=== PATIENT | male | born 1995 | race Caucasian/White ===

== ENCOUNTER 2021-07-04 06:34 | Emergency (ER) | payer OTHER ==
--- NOTE | 2021-07-04 07:31 | ED Physician Documentation ---
PD HPI LOWER EXT INJURY - Stated complaint Stated Complaint: PX RT ANKLE - Chief complaint Chief Complaint: Trauma Ext - History obtained from History obtained from: Patient - Additional information Additional information: The patient comes emergency department with chief complaint of ankle swelling and pain after twisting injury last night. Patient states he was playing basketball, when he twisted his ankle. He denies any other injuries. He has some degree of pain but can bear weight. He has noticed quite a bit of swelling and bruising. He states he is here because his made him come in. No other complaints at this time. Review of Systems Ten Systems: 10 systems reviewed and negative Constitutional: reports: Reviewed and negative Eyes: reports: Reviewed and negative Ears: reports: Reviewed and negative Nose: reports: Reviewed and negative Throat: reports: Reviewed and negative Cardiac: reports: Reviewed and negative Respiratory: reports: Reviewed and negative GI: reports: Reviewed and negative : reports: Reviewed and negative Skin: reports: Reviewed and negative Musculoskeletal: reports: Extremity pain, Joint pain, Extremity swelling, Joint swelling, Pain with weight bearing Neurologic: reports: Reviewed and negative Psychiatric: reports: Reviewed and negative Endocrine: reports: Reviewed and negative Immunocompromised: reports: Reviewed and negative PD PAST MEDICAL HISTORY - Past Medical History Past Medical History: No - Past Surgical History Past Surgical History: Yes - Present Medications Home Medications: Ambulatory Orders Medication Instructions Recorded Confirmed No Known Home Medications 03/26/13 07/04/21 - Allergies Allergies/Adverse Reactions: Allergies Allergy/AdvReac Type Severity Reaction Status Date / Time No Known Drug Allergies Allergy Verified 07/04/21 06:47 - Social History Does the pt smoke?: No Smoking Status: Never smoker Does the pt drink ETOH?: No Does the pt have substance abuse?: No - Immunizations Immunizations are current?: Yes Immunizations: TDAP >10years/unknown - POLST Patient has POLST: No PD ED PE NORMAL - Vitals Vital signs reviewed: Yes - General General: Alert and oriented X 3, No acute distress, Well developed/nourished - HEENT HEENT: Atraumatic, PERRL, EOMI, Moist mucous membranes - Neck Neck: Supple, no meningeal sign - Cardiac Cardiac: Strong equal pulses - Respiratory Respiratory: No respiratory distress - Derm Derm: Warm and dry, No rash, Other (Moderate contusion over the right lateral malleolus and inferiorly) - Extremities Extremities: No deformity, No calf tenderness / cord, Other (Moderate edema of the lateral ankle. Point tenderness over distal fibula and the talofibular ligament area. No deformity. Nearly full range of motion of ankle and foot. 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 Patient was placed in an Aircast and given a pair of crutches. We have discussed home management of symptoms, as well as usual indications for return. Departure - Departure Disposition: 01 Home, Self Care Clinical Impression: Ankle sprain Qualifiers: Encounter type: initial encounter Involved ligament of ankle: anterior talofibular ligament Laterality: right Qualified Code(s): S93.491A - Sprain of other ligament of right ankle, initial encounter Condition: Stable Instructions: ED Sprain Ankle W X Ray
--- NOTE | 2021-07-04 07:46 | XRAY Report ---
PROCEDURE: Ankle 3 View RT INDICATIONS: Injury playing baskeball; c/o pain swelling TECHNIQUE: 3 views of the ankle were acquired. COMPARISON: None FINDINGS: Bones: No fractures or dislocations. Ankle mortise is normally aligned. No suspicious bony lesions . Soft tissues: No tibiotalar joint effusion. Achilles tendon appears normal. Lateral soft tissue swe lling is noted and ligamentous injury cannot be excluded. IMPRESSION: No fracture. No osseous lesion. If there are persistent symptoms or continued clinical concern for pa thology, then repeat plain film radiographs (7-10 days) or advanced imaging (CT, MR, bone scan) shoul d be considered for further evaluation. Reviewed by: Suki Fermin MD, PhD on 07/04/2021 7:45 AM PST Approved by: Suki Fermin MD, PhD on 07/04/2021 7:45 AM PST Station ID: [id number]
[2021-07-04 08:11] VITALS: BP 130/62
== END 2021-07-04 08:10 | disposition home or self-care (01) ==
LOC: ED 06:34
DX: S93.491A Sprain of other ligament of right ankle, initial encounter (principal); X50.1XXA Overexertion from prolonged static or awkward postures, initial encounter; Y93.67 Activity, basketball
CPT/HCPCS: 1040M; 73610; 99282; 99283